=== PATIENT | female | born 1960 | race Two or more races ===

== ENCOUNTER 2018-09-26 10:42 | Emergency (ER) | payer SELFPAY ==
[~2018-09-26] VITALS: Ht 167.6 cm; Wt 136.0 kg
[~2018-09-26 10:42] MED LIST: FURO-152 PO
[2018-09-26] MEDS ORDERED: HYDROCODONE/ACETAMINOPHEN 5/325MG TABLET PO ONE (13:00)
[2018-09-26 13:39] VITALS: BP 135/83
== END 2018-09-26 15:02 | disposition home or self-care (01) ==
LOC: ER 10:42
DX: S80.211A Abrasion, right knee, initial encounter (principal); E11.9 Type 2 diabetes mellitus without complications; I10 Essential (primary) hypertension; Z88.2 Allergy status to sulfonamides; Z79.899 Other long term (current) drug therapy; W01.0XXA Fall on same level from slipping, tripping and stumbling without subsequent striking against object, initial encounter; Y93.01 Activity, walking, marching and hiking; Y92.89 Other specified places as the place of occurrence of the external cause
CPT/HCPCS: 73502; 73562; 99283; L1830